=== PATIENT | female | born 1990 | race African-American/Black ===

== ENCOUNTER 2017-01-07 18:35 | Emergency (ER) | payer OTHER ==
[~2017-01-07] VITALS: Ht 157.5 cm; Wt 79.4 kg
[~2017-01-07 18:35] MED LIST: CEPH-264 PO; HYDR-971 PO; METH-37 PO
[2017-01-07 18:55] VITALS: BP 126/79
[2017-01-07] MEDS ORDERED: metroNIDAZOLE 500 MG TABLET PO ONE (19:15)
[2017-01-07] MEDS ORDERED: cefTRIAXone IM 250 MG VIAL IM ONE (19:15)
[2017-01-07] MEDS ORDERED: AZITHROMYCIN 250 MG TABLET. PO ONE (19:15)
[2017-01-07 19:17] LABS: BILIRUBIN,URINE NEGATIVE (NEG); GLUCOSE,URINE NEGATIVE (NEG); NITRITE,URINE NEGATIVE (NEG); PH,URINE 6.5; PROTEIN,URINE NEGATIVE (NEG-TRACE)
[2017-01-07 19:31] LABS: BACTERIA,URINE FEW /HPF (0-FEW); RBC,URINE 0 /HPF (0-2); SQUAMOUS EPITHELIAL CELL,UR OCC /LPF; WBC,URINE OCC /HPF (0-4)
--- NOTE | 2017-01-07 19:37 | PHYS DOC ---
Past Medical History Past Medical History: Cancer Additional Past Medical Histor: CERVICAL CA Past Surgical History: , Tubal ligation Additional Past Surgical Histo: LEAP PROCEDURE Alcohol Use: None Drug Use: None Adult General Chief Complaint Chief Complaint: SEXUALLY TRANSMITTED DISEASE [facility] HPI Patient is a 26 year old female with history of cervical cancer and treated who presents today with concern for STDs. Patient states she's had low abdominal cramping and white vaginal discharge for couple days. She believes she has an STD. She states the last time she had similar symptoms she was diagnosed with an STD. Patient denies any chance she is . Review of Systems Review of Systems Constitutional: Denies fever or chills [] Eyes: Denies change in visual acuity, redness, or eye pain [] HENT: Denies nasal congestion or sore throat [] Respiratory: Denies cough or shortness of breath [] Cardiovascular: No additional information not addressed in HPI [] GI: Denies abdominal pain, nausea, vomiting, bloody stools or diarrhea [] : Concern for STDs Musculoskeletal: Denies back pain or joint pain [] Integument: Denies rash or skin lesions [] Neurologic: Denies headache, focal weakness or sensory changes [] Endocrine: Denies polyuria or polydipsia [] Current Medications Current Medications Current Medications Medications (Trade) Dose Ordered Sig/Billie Start Time Stop Time Status Last Admin Dose Admin Azithromycin (Zithromax) 1,000 mg 1X ONCE 01/07/17 19:15 01/07/17 19:16 DC 01/07/17 19:21 1,000 MG Ceftriaxone Sodium (Rocephin Im) 250 mg 1X ONCE 01/07/17 19:15 01/07/17 19:16 DC 01/07/17 19:23 250 MG Metronidazole (Flagyl) 2,000 mg 1X ONCE 01/07/17 19:15 01/07/17 19:16 DC 01/07/17 19:20 2,000 MG Allergies Allergies Allergies Coded Allergies Type Severity Reaction Last Updated Verified No Known Drug Allergies 01/02/14 No Physical Exam Physical Exam Constitutional: Well developed, well nourished, no acute distress, non-toxic appearance. [] HENT: Normocephalic, atraumatic, bilateral external ears normal, oropharynx moist, no oral exudates, nose normal. [] Eyes: PERRLA, EOMI, conjunctiva normal, no discharge. [] Neck: Normal range of motion, no tenderness, supple, no stridor. [] Cardiovascular:Heart rate regular rhythm, no murmur [] Lungs & Thorax: Bilateral breath sounds clear to auscultation [] Abdomen: Bowel sounds normal, soft, no tenderness, no masses, no pulsatile masses. [] Pelvic exam External pelvic area appears normal. Cervix was not visualized. No CMT. Small amount of white discharge in the vaginal vault. No bleeding. No adnexal tenderness. Skin: Warm, dry, no erythema, no rash. [] Back: No tenderness, no CVA tenderness. [] Extremities: No tenderness, no cyanosis, no clubbing, ROM intact, no edema. [] Neurologic: Alert and oriented X 3, normal motor function, normal sensory function, no focal deficits noted. [] Psychologic: Affect normal, judgement normal, mood normal. [] Current Patient Data Vital Signs Vital Signs Date Time Temp Pulse Resp B/P Pulse Ox O2 Delivery O2 Flow Rate FiO2 01/07/17 18:55 98.5 93 16 100 Room Air 98.5 Lab Values Laboratory Tests Test 01/07/17 18:14 01/07/17 18:50 POC Urine HCG, Qualitative Hcg negative (Negative) Urine Color Yellow Urine Clarity Clear Urine pH 6.5 Urine Specific [place] 1.010 Urine Protein Negativemg/dL (NEG-TRACE) Urine Glucose (UA) Negativemg/dL (NEG) Urine Ketones (Stick) Negativemg/dL (NEG) Urine Blood Small (NEG) Urine Nitrite Negative (NEG) Urine Bilirubin Negative (NEG) Urine Urobilinogen Dipstick 1.0mg/dL (0.2 mg/dL) Urine Leukocyte Esterase Negative (NEG) Urine RBC 0/HPF (0-2) Urine WBC Occ/HPF (0-4) Urine Squamous Epithelial Cells Occ/LPF Urine Bacteria Few/HPF (0-FEW) Urine Mucus Slight/LPF Microbiology 01/07/17 Wet Prep - Final, Complete EKG EKG [] Radiology/Procedures Radiology/Procedures [] Course & Med Decision Making Course & Med Decision Making Pertinent Labs and Imaging studies reviewed. (See chart for details) Patient is in the ED with STD concern. She was tested. She was also treated. She was educated on STDs. She'll follow-up with her own doctor as needed. [] Arianna Disclaimer Arianna Disclaimer This electronic medical record was generated, in whole or in part, using a voice recognition dictation system. Departure Departure Impression: Primary Impression: Concern about STD in female without diagnosis Disposition: 01 HOME, SELF-CARE Condition: STABLE Referrals: NO PCP (PCP) Follow-up with your own doctor in one week Patient Instructions: Sexually Transmitted Disease Additional Instructions: You were seen for STD concern and treated. Please contact all your sex partners , let them know you were treated for STDs and ask them to seek treatment too. Use protection. JASON TSANG DRUG SAFETY SPECIALIST January 07, 2017 19:37
== END 2017-01-07 19:39 | disposition home or self-care (01) ==
LOC: ER 18:35
DX: Z11.3 Encounter for screening for infections with a predominantly sexual mode of transmission (principal); N89.8 Other specified noninflammatory disorders of vagina; R10.30 Lower abdominal pain, unspecified; Z98.890 Other specified postprocedural states; Z98.51 Tubal ligation status
CPT/HCPCS: 81001; 81025; 87491; 87591; 96372; 99284; J0696; Q0111; Q0144

== ENCOUNTER 2017-06-18 09:06 | Emergency (ER) | payer OTHER ==
[~2017-06-18] VITALS: Ht 157.5 cm; Wt 79.4 kg
[2017-06-18 09:10] VITALS: BP 126/70
[2017-06-18 09:50] LABS: BILIRUBIN,URINE NEGATIVE (NEG); GLUCOSE,URINE NEGATIVE (NEG); NITRITE,URINE NEGATIVE (NEG); PH,URINE 6.5; PROTEIN,URINE NEGATIVE (NEG-TRACE)
--- NOTE | 2017-06-18 10:00 | PHYS DOC ---
Past Medical History Past Medical History: Cancer Additional Past Medical Histor: CERVICAL CA Past Surgical History: , Tubal ligation Additional Past Surgical Histo: LEAP PROCEDURE Alcohol Use: None Drug Use: None Adult General Chief Complaint Chief Complaint: URINARY FREQUENCY HPI HPI Patient is a 26 year old female presents to the emergency department with a history of urinary frequency and urgency for the last 3 days she also states she has foul smelling urine. Patient denies fever, chills, nausea or vomiting. Patient denies vaginal discharge. Review of Systems Review of Systems Constitutional: Denies fever or chills [] Eyes: Denies change in visual acuity, redness, or eye pain [] HENT: Denies nasal congestion or sore throat [] Respiratory: Denies cough or shortness of breath [] Cardiovascular: No additional information not addressed in HPI [] GI: Denies abdominal pain, nausea, vomiting, bloody stools or diarrhea [] : dysuria denies hematuria [] Musculoskeletal: Denies back pain or joint pain [] Integument: Denies rash or skin lesions [] Neurologic: Denies headache, focal weakness or sensory changes [] Endocrine: Denies polyuria or polydipsia [] Allergies Allergies Allergies Coded Allergies Type Severity Reaction Last Updated Verified No Known Drug Allergies 01/02/14 No Physical Exam Physical Exam Constitutional: Well developed, well nourished, no acute distress, non-toxic appearance. [] HENT: Normocephalic, atraumatic, bilateral external ears normal, oropharynx moist, no oral exudates, nose normal. [] Eyes: PERRLA, EOMI, conjunctiva normal, no discharge. [] Neck: Normal range of motion, no tenderness, supple, no stridor. [] Cardiovascular:Heart rate regular rhythm, no murmur [] Lungs & Thorax: Bilateral breath sounds clear to auscultation [] Abdomen: Bowel sounds hypoactive, soft, no tenderness, no masses, no pulsatile masses. [] Skin: Warm, dry, no erythema, no rash. [] Back: No tenderness, no CVA tenderness. [] Extremities: No tenderness, no cyanosis, no clubbing, ROM intact, no edema. [] Neurologic: Alert and oriented X 3, normal motor function, normal sensory function, no focal deficits noted. [] Psychologic: Affect normal, judgement normal, mood normal. [] Current Patient Data Vital Signs Vital Signs Date Time Temp Pulse Resp B/P (MAP) Pulse Ox O2 Delivery O2 Flow Rate FiO2 06/18/17 09:10 97.8 80 16 100 Room Air 97.8 Lab Values Laboratory Tests Test 06/18/17 09:20 06/18/17 09:30 Urine Collection Type Unknown Urine Color Yellow Urine Clarity Clear Urine pH 6.5 Urine Specific [place] 1.020 Urine Protein Negative mg/dL (NEG-TRACE) Urine Glucose (UA) Negative mg/dL (NEG) Urine Ketones (Stick) Negative mg/dL (NEG) Urine Blood Moderate (NEG) Urine Nitrite Negative (NEG) Urine Bilirubin Negative (NEG) Urine Urobilinogen Dipstick 1.0 mg/dL (0.2 mg/dL) Urine Leukocyte Esterase Negative (NEG) Urine RBC Occ /HPF (0-2) Urine WBC Occ /HPF (0-4) Urine Squamous Epithelial Cells Many /LPF Urine Bacteria Few /HPF (0-FEW) Urine Mucus Mod /LPF POC Urine HCG, Qualitative Hcg negative (Negative) EKG EKG [] Radiology/Procedures Radiology/Procedures [] Course & Med Decision Making Course & Med Decision Making Pertinent Labs and Imaging studies reviewed. (See chart for details) Urine was negative for leukocyctes, positive for blood. Patient will be placed on Bactrim with recommendations for plenty of fluids such as water and cranberry juice. Recommended to avoid cranberry juice cocktail, carbonated beverages, caffeine citrus fruits and alcohol. Patient will be discharged with recommendations to followup with PCP in 7-10 days. Signs and symptoms to return to the emergency department has been provided. All questions and concerns have been answered at patients bedside. Patient agrees with discharge instructions, treatment regimen and followup recommendations. [] Dragon Disclaimer Dragon Disclaimer This electronic medical record was generated, in whole or in part, using a voice recognition dictation system. Departure Departure Impression: Primary Impression: Dysuria Disposition: 01 HOME, SELF-CARE Condition: STABLE Referrals: NO PCP (PCP) Patient Instructions: Dysuria-Brief Additional Instructions: Activity as tolerated Medication as prescribed Drink plenty of fluids such as water and cranberry juice. Avoid cranberry juice cocktail, carbonated beverages, citrus fruits, caffeine and alcohol Followup with primary care provider in 7-10 days Return to emergency department as needed for signs and symptoms that become worse. Scripts Sulfamethoxazole/Trimethoprim (BACTRIM DS TABLET) 1 Each Tablet 1 TAB PO BID, #6 TAB Prov: IDALMIS DUMONT APRN 06/18/17 IDALMIS DUMONT APRN Jun 18, 2017 09:59
[2017-06-18 10:25] LABS: BACTERIA,URINE FEW /HPF (0-FEW); RBC,URINE OCC /HPF (0-2); SQUAMOUS EPITHELIAL CELL,UR MANY /LPF; WBC,URINE OCC /HPF (0-4)
[2017-06-18] MEDS ORDERED: SULF1TAB24 PO (10:33)
== END 2017-06-18 10:59 | disposition home or self-care (01) ==
LOC: ER 09:06
DX: R30.0 Dysuria (principal); R35.0 Frequency of micturition; R39.15 Urgency of urination; Z98.51 Tubal ligation status; Z98.890 Other specified postprocedural states
CPT/HCPCS: 81001; 81025; 99283

== ENCOUNTER 2017-11-08 07:38 | Emergency (ER) | payer OTHER ==
[2017-11-08] MEDS: IBUPROFEN 800 MG TABLET. PO (08:34)
[2017-11-08] MEDS: traMADol 50 MG TABLET PO (08:34)
== END 2017-11-08 09:09 | disposition home or self-care (01) ==
LOC: ER 09:09
DX: R07.89 Other chest pain (principal)
CPT/HCPCS: 71046; 93005; 99284-25

== ENCOUNTER → 2017-11-18 | Outpatient (CLI) | payer OTHER | END | disposition home or self-care (01) | LOC: ECHO 12:16 | DX: I36.1 Nonrheumatic tricuspid (valve) insufficiency (principal); R07.89 Other chest pain | CPT/HCPCS: 93306 ==

== ENCOUNTER 2018-03-05 06:01 | Emergency (ER) | payer OTHER ==
[2018-03-05 06:45] LABS: URINE HCG POC HCG NEGATIVE (Negative)
[2018-03-05 07:05] LABS: BILIRUBIN,URINE NEGATIVE (NEG); CLARITY,URINE CLEAR; COLOR,URINE YELLOW; GLUCOSE,URINE NEGATIVE (NEG); NITRITE,URINE NEGATIVE (NEG); PH,URINE 6.5; PROTEIN,URINE NEGATIVE (NEG-TRACE)
[2018-03-05 07:10] LABS: BACTERIA,URINE MANY /HPF (0-FEW); SQUAMOUS EPITHELIAL CELL,UR MANY /LPF
== END 2018-03-05 07:26 | disposition home or self-care (01) ==
LOC: ER 06:01
DX: N39.0 Urinary tract infection, site not specified (principal); Z98.51 Tubal ligation status
CPT/HCPCS: 81001; 81025; 87086; 99284

== ENCOUNTER 2018-03-19 09:56 | Emergency (ER) | payer OTHER ==
[2018-03-19 10:10] LABS: URINE HCG POC HCG NEGATIVE (Negative)
[2018-03-19] MEDS: ONDANSETRON ODT 4 MG TAB.RAPDIS. PO (10:31)
[2018-03-19 10:50] LABS: BACTERIA,URINE 0 /HPF (0-FEW); BILIRUBIN,URINE NEGATIVE (NEG); CLARITY,URINE CLEAR; COLOR,URINE YELLOW; GLUCOSE,URINE NEGATIVE (NEG); NITRITE,URINE NEGATIVE (NEG); PROTEIN,URINE 30 mg/dL (NEG-TRACE); RBC,URINE 0 /HPF (0-2); SQUAMOUS EPITHELIAL CELL,UR MOD /LPF; WBC,URINE 0 /HPF (0-4)
== END 2018-03-19 12:20 | disposition home or self-care (01) ==
LOC: ER 09:56
DX: T67.5XXA Heat exhaustion, unspecified, initial encounter (principal); E86.0 Dehydration; R11.2 Nausea with vomiting, unspecified; X58.XXXA Exposure to other specified factors, initial encounter; Y93.89 Activity, other specified; Y99.8 Other external cause status; Y92.89 Other specified places as the place of occurrence of the external cause
CPT/HCPCS: 81001; 81025; 99283; Q0162

== ENCOUNTER 2018-04-23 08:37 | Emergency (ER) | payer OTHER ==
[~2018-04-23] VITALS: Ht 157.5 cm; Wt 81.6 kg
[~2018-04-23 08:37] MED LIST changes: +CEPH500C PO; +CYCL5TAB PO; +IBUP-1060 PO; +SULF1TAB24 PO
[2018-04-23 08:40] VITALS: BP 137/81
--- NOTE | 2018-04-23 08:50 | PHYS DOC ---
Past Medical History Past Medical History: Cancer Additional Past Medical Histor: CERVICAL CA Past Surgical History: , Tubal ligation Additional Past Surgical Histo: LEAP PROCEDURE Alcohol Use: None Drug Use: None Adult General Chief Complaint Chief Complaint: SORE THROAT HPI HPI Patient is a 27 year old female who presents to the ER for evaluation of URI symptoms. Patient reports onset of congestion, postnasal drip, bilateral ear pain, and sore throat since yesterday. No fever, normal PO intake. No nausea, no vomiting. Denies any history of recurrent strep infections. Review of Systems Review of Systems Constitutional: Denies fever or chills [] Eyes: Denies change in visual acuity, redness, or eye pain [] HENT: Denies nasal congestion or sore throat [] Respiratory: Denies cough or shortness of breath [] Cardiovascular: No additional information not addressed in HPI [] GI: Denies abdominal pain, nausea, vomiting, bloody stools or diarrhea [] : Denies dysuria or hematuria [] Musculoskeletal: Denies back pain or joint pain [] Integument: Denies rash or skin lesions [] Neurologic: Denies headache, focal weakness or sensory changes [] Endocrine: Denies polyuria or polydipsia [] All other systems were reviewed and found to be within normal limits, except as documented in this note. Allergies Allergies Allergies Coded Allergies Type Severity Reaction Last Updated Verified No Known Drug Allergies 01/02/14 No Physical Exam Physical Exam Constitutional: Well developed, well nourished, no acute distress, non-toxic appearance. [] HENT: Normocephalic, atraumatic, bilateral external ears normal, oropharynx moist with mild erythema, no oral exudates, nose normal. []No facial edema, no trismus, submental and sublingual spaces are soft and nontender, clear phonation and speech. No oral secretions Eyes: PERRLA, EOMI, Neck: no stridor. [] Cardiovascular:Heart rate regular rhythm, no murmur [] Lungs & Thorax: Bilateral breath sounds clear to auscultation [] [] Skin: Warm, dry, no erythema, no rash. [] Extremities: ROM intact Neurologic: Alert and oriented X 3,no focal deficits noted. [] Psychologic: Affect normal, judgement normal, mood normal. [] Current Patient Data Vital Signs Vital Signs Date Time Temp Pulse Resp B/P (MAP) Pulse Ox O2 Delivery O2 Flow Rate FiO2 04/23/18 08:40 98.1 78 20 137/81 (99) 99 Room Air 98.1 Lab Values Laboratory Tests Test 04/23/18 08:42 Group A Streptococcus Rapid Negative (NEGATIVE) EKG EKG [] Radiology/Procedures Radiology/Procedures [] Course & Med Decision Making Course & Med Decision Making Pertinent Labs and Imaging studies reviewed. (See chart for details) []Presentation and exam at this time consistent with viral infection. Strep negative. Discussed supportive care is patient. Patient provided with work no. ER return precautions given. Patient verbalized understanding. All questions answered. Dragon Disclaimer Dragon Disclaimer This electronic medical record was generated, in whole or in part, using a voice recognition dictation system. Departure Departure Impression: Primary Impression: Sore throat (viral) Additional Impressions: Acute pain of both ears URI (upper respiratory infection) Disposition: 01 HOME, SELF-CARE Condition: STABLE Referrals: CYNTHIA SALTER (PCP) Additional Instructions: Thank you for coming to [facility]. Please repeat the attached handouts. Please follow-up with your primary care physician. Return to the ER if your symptoms worsen or you have any other concerns. Please take ibuprofen 800 mg 3 times a day with food for pain. You can alternate this with Tylenol 1000 mg up to 4 times a day. Please take [id number] cold medication. Follow-up with your primary care doctor in the next 3-5 days. Problem Qualifiers VERA VAIL DO Apr 23, 2018 08:50
== END 2018-04-23 09:18 | disposition home or self-care (01) ==
LOC: ER 08:37
DX: J06.9 Acute upper respiratory infection, unspecified (principal); H92.03 Otalgia, bilateral; J02.8 Acute pharyngitis due to other specified organisms; B97.89 Other viral agents as the cause of diseases classified elsewhere
CPT/HCPCS: 87070; 87880; 99283

== ENCOUNTER 2018-05-26 10:07 | Emergency (ER) | payer OTHER ==
[~2018-05-26] VITALS: Ht 157.5 cm; Wt 79.4 kg
[2018-05-26 10:10] VITALS: BP 140/91
--- NOTE | 2018-05-26 10:18 | PHYS DOC ---
Past Medical History Past Medical History: Cancer Additional Past Medical Histor: CERVICAL CA Past Surgical History: , Tubal ligation Additional Past Surgical Histo: LEAP PROCEDURE Alcohol Use: None Drug Use: None Adult General Chief Complaint Chief Complaint: URINARY FREQUENCY [facility] HPI Patient is a 27 year old female with history of cervical cancer and treated, LEEP procedure, who presents today complaining of urinary frequency and dysuria that began yesterday. Patient states she has history of frequent UTIs, last episode was in February 2018. She does not remember the medications she took in February. Patient denies any abdominal pain, nausea vomiting or back pain. Denies any chance she is . Review of Systems Review of Systems Constitutional: Denies fever or chills [] Eyes: Denies change in visual acuity, redness, or eye pain [] HENT: Denies nasal congestion or sore throat [] Respiratory: Denies cough or shortness of breath [] Cardiovascular: No additional information not addressed in HPI [] GI: Denies abdominal pain, nausea, vomiting, bloody stools or diarrhea [] : Reports urinary frequency, dysuria, denies hematuria [] Musculoskeletal: Denies back pain or joint pain [] Integument: Denies rash or skin lesions [] Neurologic: Denies headache, focal weakness or sensory changes [] All other systems were reviewed and found to be within normal limits, except as documented in this note. Allergies Allergies Allergies Coded Allergies Type Severity Reaction Last Updated Verified No Known Drug Allergies 01/02/14 No Physical Exam Physical Exam Constitutional: Well developed, well nourished, no acute distress, non-toxic appearance. [] HENT: Normocephalic, atraumatic, bilateral external ears normal, oropharynx moist, no oral exudates, nose normal. [] Eyes: PERRLA, EOMI, conjunctiva normal, no discharge. [] Neck: Normal range of motion, no tenderness, supple, no stridor. [] Cardiovascular:Heart rate regular rhythm, no murmur [] Lungs & Thorax: Bilateral breath sounds clear to auscultation [] Abdomen: Bowel sounds normal, soft, no tenderness, no masses, no pulsatile masses. [] Skin: Warm, dry, no erythema, no rash. [] Back: No tenderness, no CVA tenderness. [] Extremities: No tenderness, no cyanosis, no clubbing, ROM intact, no edema. [] Neurologic: Alert and oriented X 3, normal motor function, normal sensory function, no focal deficits noted. [] Psychologic: Affect normal, judgement normal, mood normal. [] Current Patient Data Vital Signs Vital Signs Date Time Temp Pulse Resp B/P (MAP) Pulse Ox O2 Delivery O2 Flow Rate FiO2 05/26/18 10:10 98.0 91 18 140/91 (107) 100 Room Air 98.0 Lab Values Laboratory Tests Test 05/26/18 10:10 05/26/18 10:29 Urine Collection Type Unknown Urine Color Yellow Urine Clarity Clear Urine pH 7.5 Urine Specific [place] 1.015 Urine Protein Negative mg/dL (NEG-TRACE) Urine Glucose (UA) Negative mg/dL (NEG) Urine Ketones (Stick) Negative mg/dL (NEG) Urine Blood Moderate (NEG) Urine Nitrite Negative (NEG) Urine Bilirubin Negative (NEG) Urine Urobilinogen Dipstick 0.2 mg/dL (0.2 mg/dL) Urine Leukocyte Esterase Large (NEG) Urine RBC 20-40 /HPF (0-2) Urine WBC >40 /HPF (0-4) Urine Squamous Epithelial Cells Mod /LPF Urine Bacteria Few /HPF (0-FEW) POC Urine HCG, Qualitative Hcg negative (Negative) EKG EKG [] Radiology/Procedures Radiology/Procedures [] Course & Med Decision Making Course & Med Decision Making Pertinent Labs and Imaging studies reviewed. (See chart for details) This is a 27-year-old female patient presenting to the ED today with urinary frequency and dysuria for 1 day. Has history of frequent UTIs. Negative urine hCG, urine positive for UTI, discharged on Cipro. Provided a urologist to follow -up as an outpatient for frequent UTIs. Provided instructions to return to the ED at any point symptoms worsen. Discharged with Pyridium as well. Dragon Disclaimer Dragon Disclaimer This electronic medical record was generated, in whole or in part, using a voice recognition dictation system. Departure Departure Impression: Primary Impression: Urinary tract infection Disposition: HOME, SELF-CARE Condition: STABLE Referrals: NO PCP (PCP) TRI BRANCH MD Follow-up in one week Patient Instructions: Urinary Tract Infection Additional Instructions: You were evaluated in the emergency room for urinary tract infection. We put you on antibiotics, ensure you complete them. Considering you have had frequent episodes of urinary tract infection, consider calling the provided urologist and set up a follow-up appointment. Push fluids. Come back to the ED at any point symptoms worsen. Scripts Phenazopyridine Hcl (PYRIDIUM) 100 Mg Tablet 100 MG PO TID, #9 TAB Prov: JASON TSANG APRN 05/26/18 Ciprofloxacin Hcl (CIPRO) 500 Mg Tablet 1 TAB PO BID, #14 TAB Prov: JASON TSANG APRN 05/26/18 Problem Qualifiers Primary Impression: Urinary tract infection Urinary tract infection type: site unspecified Hematuria presence: without hematuria Qualified Codes: N39.0 - Urinary tract infection, site not specified JASON TSANG APRN May 26, 2018 10:18
[2018-05-26 10:40] LABS: BILIRUBIN,URINE NEGATIVE (NEG); CLARITY,URINE CLEAR; COLOR,URINE YELLOW; NITRITE,URINE NEGATIVE (NEG); PH,URINE 7.5; PROTEIN,URINE NEGATIVE (NEG-TRACE); UROBILINOGEN,URINE 0.2 mg/dL (0.2 mg/dL)
[2018-05-26 11:01] LABS: SQUAMOUS EPITHELIAL CELL,UR MOD /LPF
[2018-05-26 11:02] LABS: RBC,URINE 20-40 /HPF (0-2); WBC,URINE >40 /HPF (0-4)
[2018-05-26 11:03] LABS: BACTERIA,URINE FEW /HPF (0-FEW)
[2018-05-26] MEDS ORDERED: CIPR500T94 PO (11:18)
[2018-05-26] MEDS ORDERED: PHEN100T82 PO (11:18)
== END 2018-05-26 11:20 | disposition home or self-care (01) ==
LOC: ER 10:07
DX: N39.0 Urinary tract infection, site not specified (principal); Z98.51 Tubal ligation status
CPT/HCPCS: 81001; 81025; 87086; 87186; 87491; 87591; 99284

== ENCOUNTER 2018-09-11 06:22 | Emergency (ER) | payer OTHER ==
[~2018-09-11] VITALS: Ht 154.9 cm; Wt 79.4 kg
[~2018-09-11 06:22] MED LIST changes: +CIPR500T94 PO; +HYDR-3164 PO; -HYDR-971 PO; +PHEN100T82 PO
[2018-09-11 06:29] VITALS: BP 135/74
[2018-09-11] MEDS ORDERED: SULF1TAB24 PO (06:36)
[2018-09-11] MEDS ORDERED: CEPH500C PO (06:36)
--- NOTE | 2018-09-11 06:37 | PHYS DOC ---
Past Medical History Past Medical History: Cancer Additional Past Medical Histor: CERVICAL CA Past Surgical History: , Tubal ligation Additional Past Surgical Histo: LEAP PROCEDURE Alcohol Use: None Drug Use: None Adult General Chief Complaint Chief Complaint: SKIN PROBLEM HPI HPI Patient is a 28 year old female presented to the ER for evaluation of tender spots in left armpit since yesterday, woke up this morning with worsen pain, no fever. NO HISTORY OF DIABETIC. She shaved her armpit two days ago. Review of Systems Review of Systems Constitutional: Denies fever or chills [] Eyes: Denies change in visual acuity, redness, or eye pain [] HENT: Denies nasal congestion or sore throat [] Respiratory: Denies cough or shortness of breath [] Cardiovascular: No additional information not addressed in HPI [] GI: Denies abdominal pain, nausea, vomiting, bloody stools or diarrhea [] : Denies dysuria or hematuria [] Musculoskeletal: Denies back pain or joint pain [] Integument:TENDER AREAS IN LEFT ARMPIT . Neurologic: Denies headache, focal weakness or sensory changes [] Endocrine: Denies polyuria or polydipsia [] All other systems were reviewed and found to be within normal limits, except as documented in this note. Allergies Allergies Allergies Coded Allergies Type Severity Reaction Last Updated Verified No Known Drug Allergies 01/02/14 No Physical Exam Physical Exam Constitutional: Well developed, well nourished, no acute distress, non-toxic appearance. [] HENT: Normocephalic, atraumatic, bilateral external ears normal, oropharynx moist, no oral exudates, nose normal. [] Eyes: PERRLA, EOMI, conjunctiva normal, no discharge. [] Neck: Normal range of motion, no tenderness, supple, no stridor. [] Cardiovascular:Heart rate regular rhythm, no murmur [] Lungs & Thorax: Bilateral breath sounds clear to auscultation [] Abdomen: Bowel sounds normal, soft, no tenderness, no masses, no pulsatile masses. [] Skin: There area several small tender lesions on left armpit with surrounding erythema, the lesions are about .5 cm, too early and too small for I and D, NO ACTIVE DRAINAGE. Back: No tenderness, no CVA tenderness. [] Extremities: No tenderness, no cyanosis, no clubbing, ROM intact, no edema. [] Neurologic: Alert and oriented X 3, normal motor function, normal sensory function, no focal deficits noted. [] Psychologic: Affect normal, judgement normal, mood normal. [] Current Patient Data Vital Signs Vital Signs Date Time Temp Pulse Resp B/P (MAP) Pulse Ox O2 Delivery O2 Flow Rate FiO2 09/11/18 06:29 97.7 80 18 135/74 (94) 100 Room Air 97.7 EKG EKG [] Radiology/Procedures Radiology/Procedures [] Course & Med Decision Making Course & Med Decision Making Pertinent Labs and Imaging studies reviewed. (See chart for details) There is cellulitis and maybe early abscess in left armpit area, will try antibiotic first, if not improve in two days, patient will come back for reevaluation. Dragon Disclaimer Dragon Disclaimer This electronic medical record was generated, in whole or in part, using a voice recognition dictation system. Departure Departure Impression: Primary Impression: Cellulitis of axilla, left Disposition: 01 HOME, SELF-CARE Condition: STABLE Referrals: NO PCP (PCP) follow up with your pcp or come back to the ER in two days for reevaluation if not improving. Patient Instructions: Cellulitis Scripts Sulfamethoxazole/Trimethoprim (BACTRIM DS TABLET) 1 Each Tablet 1 TAB PO BID, #20 TAB Prov: TOMMIE SHAHID DO 09/11/18 Cephalexin (CEPHALEXIN) 500 Mg Capsule 1 CAP PO QID, #40 CAP Prov: TOMMIE SHAIHD DO 09/11/18 TOMMIE SHAHID DO Sep 11, 2018 06:37
== END 2018-09-11 06:45 | disposition home or self-care (01) ==
LOC: ER 06:22
DX: L03.112 Cellulitis of left axilla (principal)
CPT/HCPCS: 99283

== ENCOUNTER 2018-10-15 10:37 | Emergency (ER) | payer SELFPAY ==
[~2018-10-15] VITALS: Ht 154.9 cm; Wt 79.4 kg
[2018-10-15 10:39] VITALS: BP 139/81
[2018-10-15] MEDS ORDERED: ORPH100T PO (11:27)
--- NOTE | 2018-10-15 11:27 | PHYS DOC ---
Past Medical History Past Medical History: Cancer, Other Additional Past Medical Histor: CERVICAL CA Past Surgical History: , Tubal ligation, Other Additional Past Surgical Histo: LEEP PROCEDURE Alcohol Use: None Drug Use: None Adult General Chief Complaint Chief Complaint: HEAD INJURY/TRAUMA [facility] HPI Patient is a 28 year old AA female who presents to the ER with complaints of R posterior head pain and R lateral neck pain after a slip and fall on the ice last night. She denies any LOC, vision changes, or confusion after the fall. Pt states that she vomited x1 last night but has been able to drink sprite this morning without vomiting. Pt currently rates her pain a 10/10 on the pain scale there are no alleviating factors. She states that movement exacerbates the pain. Review of Systems Review of Systems Constitutional: Denies fever or chills [] Eyes: Denies change in visual acuity, redness, or eye pain [] HENT: Denies nasal congestion or sore throat [] Respiratory: Denies cough or shortness of breath [] Cardiovascular: No additional information not addressed in HPI [] GI: Denies abdominal pain, or diarrhea; see HPI Musculoskeletal: Denies back pain, reports R sided neck pain Integument: Denies rash or skin lesions [] Neurologic: Denies focal weakness or sensory changes; see HPI Allergies Allergies Allergies Coded Allergies Type Severity Reaction Last Updated Verified No Known Drug Allergies 01/02/14 No Physical Exam Physical Exam Constitutional: Well developed, well nourished, no acute distress, non-toxic appearance. [] HENT: Normocephalic, atraumatic, bilateral external ears normal, oropharynx moist, no oral exudates, nose normal. [] Eyes: PERRLA, EOMI, conjunctiva normal, no discharge. [] Neck: R sternoclavicular TTP, no bony tenderness, supple, no stridor. [] Cardiovascular:Heart rate regular rhythm, no murmur [] Lungs & Thorax: Bilateral breath sounds clear to auscultation [] Skin: Warm, dry, no erythema, no rash. [] Extremities: No cyanosis, no clubbing, ROM intact, no edema. [] Neurologic: Alert and oriented X 3, normal motor function, normal sensory function, no focal deficits noted. [] Psychologic: Affect normal, judgement normal, mood normal. [] Current Patient Data Vital Signs Vital Signs Date Time Temp Pulse Resp B/P (MAP) Pulse Ox O2 Delivery O2 Flow Rate FiO2 10/15/18 10:39 98.1 76 16 139/81 (100) 100 Room Air 98.1 EKG EKG [] Radiology/Procedures Radiology/Procedures [] Course & Med Decision Making Course & Med Decision Making Pertinent Labs and Imaging studies reviewed. (See chart for details) Dx: R cervical strain, fall with closed head injury no LOC Discussed benefits/ risks of CT scan, pt declined imaging at this time. Given head injury precautions. Prescription for norflex written, pt will take naproxen at home. Apply ice to sore areas prn. Follow up with PCP in 1-2 days if sx persist, return to ER if sx worsen. Patient verbalized an understanding of home care, medications, follow-up, and return to ED instructions and was in agreement with the plan of care. [] Dragon Disclaimer Dragon Disclaimer This electronic medical record was generated, in whole or in part, using a voice recognition dictation system. Departure Departure Impression: Primary Impression: Closed head injury without loss of consciousness Additional Impressions: Cervical strain, acute Strain of anterolateral cervical muscle Disposition: HOME, SELF-CARE Condition: STABLE Referrals: NO PCP (PCP) Patient Instructions: Cervical Strain and Sprain with [facility], Head Injury, Adult, [id number] Additional Instructions: Follow the head injury precautions provided. Apply ice to sore areas as needed for comfort. Fill the prescriptions and use as directed, take your naproxen at home twice daily. Follow up with your primary care doctor in 1-2 days if symptoms persist, return to the ER if symptoms worsen. Scripts Orphenadrine Citrate (ORPHENADRINE CITRATE) 100 Mg Tablet.er 100 MG PO BID PRN for MUSCLE PAIN for 10 Days, #20 TAB.SR 0 Refills Prov: MINO JUDD DEALMAKER 10/15/18 Problem Qualifiers Primary Impression: Closed head injury without loss of consciousness Encounter type: initial encounter Qualified Codes: S09.90XA - Unspecified injury of head, initial encounter Additional Impressions: Cervical strain, acute Encounter type: initial encounter Qualified Codes: S16.1XXA - Strain of muscle, fascia and tendon at neck level, initial encounter Strain of anterolateral cervical muscle Encounter type: initial encounter Qualified Codes: S16.1XXA - Strain of muscle, fascia and tendon at neck level, initial encounter MINO JUDD APRN Oct 15, 2018 11:27
== END 2018-10-15 11:29 | disposition home or self-care (01) ==
LOC: ER 10:37
DX: S16.1XXA Strain of muscle, fascia and tendon at neck level, initial encounter (principal); S09.8XXA Other specified injuries of head, initial encounter; M25.511 Pain in right shoulder; Z98.890 Other specified postprocedural states; Z98.51 Tubal ligation status; W00.0XXA Fall on same level due to ice and snow, initial encounter; Y93.89 Activity, other specified; Y92.89 Other specified places as the place of occurrence of the external cause; Y99.8 Other external cause status
CPT/HCPCS: 99284-25

== ENCOUNTER 2018-10-18 09:12 | Emergency (ER) | payer OTHER ==
[~2018-10-18] VITALS: Ht 154.9 cm; Wt 79.4 kg
[~2018-10-18 09:12] MED LIST changes: +ORPH100T PO
--- NOTE | 2018-10-18 10:04 | RAD ---
PA chest and 4 oblique rib x-rays HISTORY: Fall, rib pain more on the right side. FINDINGS: Heart size normal. Mediastinal silhouette is normal. No pneumothorax, pulmonary opacities or pleural effusions. No evidence of a right or left rib fracture. At the proximal right humeral shaft there is a 4 cm in length oval circumscribed intramedullary sclerotic bone lesion well-defined margins, no endosteal scalloping, cortical disruption or periosteal reaction, imaging features are nonaggressive and favor a benign lesion, could represent an involuting bone cyst or involuting nonossifying fibroma, or benign fibro-osseous lesion. This is stable from x-rays from November 2017. IMPRESSION: No acute process. No evidence of a rib fracture. See discussion above. Electronically signed by: Yordy Claudio MD (10/18/2018 9:59 AM) [facility] [place]
--- NOTE | 2018-10-18 10:06 | RAD ---
CT head without contrast PQRS statement: CT scans at this facility use dose reduction including either automated exposure control, iterative reconstructions, and /or weight based radiation dosing via mA and kV modification when appropriate to reduce radiation dose to as low as reasonably achievable. HISTORY: Fall, headache, dizziness. TECHNIQUE: 5 mm axial noncontrast imaging skull base to vertex. FINDINGS: No intracranial hemorrhage, mass, hydrocephalus, extra-axial fluid collections or infarction. No acute ischemic change. Imaged orbits, mastoids and bones are unremarkable. IMPRESSION: No acute intracranial CT abnormality. Electronically signed by: Yordy Claudio MD (10/18/2018 10:02 AM) [facility] [place]
[2018-10-18] MEDS ORDERED: HYDROcodone/APAP 5/325MG 1 TAB TABLET PO ONE (10:15)
--- NOTE | 2018-10-18 10:25 | PHYS DOC ---
Past Medical History Past Medical History: Cancer, Other Additional Past Medical Histor: CERVICAL CA Past Surgical History: , Tubal ligation, Other Additional Past Surgical Histo: LEEP PROCEDURE Alcohol Use: None Drug Use: None Adult General Chief Complaint Chief Complaint: RIB PAIN HPI HPI Patient is a 28 year old female who presents with right sided rib pain and a headache with dizziness after she fell on the ice. She's been taking over-the- counter pain control with no relief. She denies loss of consciousness, changes in gait or blurry vision. The patient is very anxious. Review of Systems Review of Systems Constitutional: Denies fever or chills [] Eyes: Denies change in visual acuity, redness, or eye pain [] HENT: Denies nasal congestion or sore throat [] Respiratory: Denies cough or shortness of breath [] Cardiovascular: No additional information not addressed in HPI [] GI: Denies abdominal pain, nausea, vomiting, bloody stools or diarrhea [] : Denies dysuria or hematuria [] Musculoskeletal: See history of present illness Integument: Denies rash or skin lesions [] Neurologic: See history of present illness Endocrine: Denies polyuria or polydipsia [] All other systems were reviewed and found to be within normal limits, except as documented in this note. Current Medications Current Medications Current Medications Medications (Trade) Dose Ordered Sig/Billie Start Time Stop Time Status Last Admin Dose Admin Acetaminophen/ Hydrocodone Bitart (Lortab 5/325) 1 tab 1X ONCE 10/18/18 10:15 10/18/18 10:16 DC 10/18/18 10:10 1 TAB Allergies Allergies Allergies Coded Allergies Type Severity Reaction Last Updated Verified No Known Drug Allergies 01/02/14 No Physical Exam Physical Exam Constitutional: Well developed, well nourished, no acute distress, non-toxic appearance. [] HENT: Normocephalic, atraumatic, bilateral external ears normal, oropharynx moist, no oral exudates, nose normal. [] Eyes: PERRLA, EOMI, conjunctiva normal, no discharge. [] Neck: Normal range of motion, no tenderness, supple, no stridor. [] Cardiovascular:Heart rate regular rhythm, no murmur [] Lungs & Thorax: Bilateral breath sounds clear to auscultation, pain with palpation to the right posterior rib cage, [] Abdomen: Bowel sounds normal, soft, no tenderness, no masses, no pulsatile masses. [] Skin: Warm, dry, no erythema, no rash. [] Back: No tenderness, no CVA tenderness. [] Extremities: No tenderness, no cyanosis, no clubbing, ROM intact, no edema. [] Neurologic: Alert and oriented X 3, normal motor function, normal sensory function, no focal deficits noted, cranial nerves II-XII are grossly intact. [] Psychologic: Affect normal, judgement normal, mood normal. [] Current Patient Data Vital Signs Vital Signs Date Time Temp Pulse Resp B/P (MAP) Pulse Ox O2 Delivery O2 Flow Rate FiO2 10/18/18 09:13 97.9 80 18 132/77 (95) 100 Room Air 97.9 Lab Values Laboratory Tests Test 10/18/18 09:37 POC Urine HCG, Qualitative Hcg negative (Negative) EKG EKG [] Radiology/Procedures Radiology/Procedures []PATIENT: BREANNA JAIN MACCOUNT: [id number]#: [id number] : 1990 LOCATION: ER AGE: 28 SEX: F EXAM STATUS: REG ER ORD. PHYSICIAN: ADORE MARADIAGA APRN REASON: fell on ice, rib pain, mainly to right PROCEDURE: RIBS BILAT & PA CXR 4+V PA chest and 4 oblique rib x-rays HISTORY: Fall, rib pain more on the right side. FINDINGS: Heart size normal. Mediastinal silhouette is normal. No pneumothorax, pulmonary opacities or pleural effusions. No evidence of a right or left rib fracture. At the proximal right humeral shaft there is a 4 cm in length oval circumscribed intramedullary sclerotic bone lesion well-defined margins, no endosteal scalloping, cortical disruption or periosteal reaction, imaging features are nonaggressive and favor a benign lesion, could represent an involuting bone cyst or involuting nonossifying fibroma, or benign fibro-osseous lesion. This is stable from x-rays from November 2017. IMPRESSION: No acute process. No evidence of a rib fracture. See discussion above. Electronically signed by: Paulo Claudio MD (10/18/2018 9:59 AM) [facility] [place] DICTATED and SIGNED BY: PAULO CLAUDIO MD DATE: 10/18/18 0956 Signed PATIENT: BREANNA JAIN ACCOUNT: [id number] : 1990 LOCATION: ER AGE: 28 SEX: F EXAM STATUS: REG ER ORD. PHYSICIAN: ADORE MARADIAGA APRN REASON: fell on ice, continued headache and dizziness PROCEDURE: CT HEAD WO CONTRAST CT head without contrast PQRS statement: CT scans at this facility use dose reduction including either automated exposure control, iterative reconstructions, and /or weight based radiation dosing via mA and kV modification when appropriate to reduce radiation dose to as low as reasonably achievable. HISTORY: Fall, headache, dizziness. TECHNIQUE: 5 mm axial noncontrast imaging skull base to vertex. FINDINGS: No intracranial hemorrhage, mass, hydrocephalus, extra-axial fluid collections or infarction. No acute ischemic change. Imaged orbits, mastoids and bones are unremarkable. IMPRESSION: No acute intracranial CT abnormality. Electronically signed by: Paulo Claudio MD (10/18/2018 10:02 AM) [facility] [place] DICTATED and SIGNED BY: PAULO CLAUDIO MD DATE: 10/18/18 0959 Course & Med Decision Making Course & Med Decision Making Pertinent Labs and Imaging studies reviewed. (See chart for details) []The patient's imaging was negative. She will be discharged home. Dragon Disclaimer Dragon Disclaimer This electronic medical record was generated, in whole or in part, using a voice recognition dictation system. Departure Departure Impression: Primary Impression: Closed head injury without loss of consciousness Additional Impression: Rib contusion Disposition: 01 HOME, SELF-CARE Condition: STABLE Referrals: NO PCP (PCP) Patient Instructions: Head Injury, Adult, Rib Contusion Additional Instructions: No acute injuries were found on imaging. Follow-up with your primary care provider for recheck in 3 days. You may take ibuprofen or Tylenol for pain. If worsening return to the emergency department. Problem Qualifiers ADORE MARADIAGA APRN Oct 18, 2018 10:25
== END 2018-10-18 10:41 | disposition home or self-care (01) ==
LOC: ER 09:12
DX: S20.211A Contusion of right front wall of thorax, initial encounter (principal); S09.90XA Unspecified injury of head, initial encounter; R51 Headache; R42 Dizziness and giddiness; W00.0XXA Fall on same level due to ice and snow, initial encounter; Y93.89 Activity, other specified; Y92.89 Other specified places as the place of occurrence of the external cause; Y99.8 Other external cause status
CPT/HCPCS: 70450; 71111; 81025; 99284-25

== ENCOUNTER 2018-11-11 16:47 | Emergency (ER) | payer SELFPAY ==
[~2018-11-11] VITALS: Ht 154.9 cm; Wt 79.4 kg
--- NOTE | 2018-11-11 18:08 | PHYS DOC ---
Past Medical History Past Medical History: Cancer, Other Additional Past Medical Histor: CERVICAL CA (MINO JUDD APRN) Past Surgical History: , Tubal ligation, Other Additional Past Surgical Histo: LEEP PROCEDURE (MINO JUDD APRN) Alcohol Use: None Drug Use: None (MINO JUDD APRN) Adult General Chief Complaint Chief Complaint: CONSTIPATION HPI HPI Patient is a 28 year old AA female who presents to the ER with complaints of constipation and abdominal pain. Patient states she has not had a bowel movement for the last 6 days. Earlier today when she tried to go to have a bowel movement the only thing that came out was some bright red blood. Patient denies any fever, dysuria, increased urinary frequency, hematuria, nausea, vomiting, or diarrhea. She states that symptoms first began after she had eaten at a [place] steak[place], which made her feel like she had food poisoning. Currently she rates her pain as a 7 out of 10 on the pain scale. She states there are no alleviating factors. The pain increases when she tries to have a bowel movement or if her abdomen is palpated. (MINO JUDD APRN) Review of Systems Review of Systems Constitutional: Denies fever or chills [] Eyes: Denies change in visual acuity, redness, or eye pain [] HENT: Denies nasal congestion or sore throat [] Respiratory: Denies cough or shortness of breath [] Cardiovascular: No additional information not addressed in HPI [] GI: See history of present illness : Denies dysuria, increased frequency, or hematuria [] Musculoskeletal: Denies back pain or joint pain [] Integument: Denies rash or skin lesions [] Neurologic: Denies headache, focal weakness or sensory changes [] Complete systems were reviewed and found to be within normal limits, except as documented in this note. (MINO JUDD APRN) Current Medications Current Medications Current Medications Medications (Trade) Dose Ordered Sig/Billie Start Time Stop Time Status Last Admin Dose Admin Iohexol (Omnipaque 300 Mg/ml) 75 ml 1X ONCE 11/11/18 19:15 11/11/18 19:16 DC 11/11/18 19:20 75 ML Magnesium Citrate (Citroma) 296 ml 1X ONCE 3/6/19 20:00 11/11/18 20:01 DC 11/11/18 20:00 296 ML Sodium Chloride 1,000 ml @ 1,000 mls/hr 1X ONCE 11/11/18 18:15 11/11/18 19:14 DC 11/11/18 18:21 1,000 MLS/HR (DEANA VILLALOBOS DO) Allergies Allergies Allergies Coded Allergies Type Severity Reaction Last Updated Verified No Known Drug Allergies 01/02/14 No (DEANA VILLALOBOS DO) Physical Exam Physical Exam Constitutional: Well developed, well nourished, no acute distress, non-toxic appearance, obese. [] HENT: Normocephalic, atraumatic, bilateral external ears normal, oropharynx moist, no oral exudates, nose normal. [] Eyes: conjunctiva normal, no discharge. [] Neck: Normal range of motion, no stridor. [] Cardiovascular:Heart rate regular rhythm, no murmur [] Lungs & Thorax: Bilateral breath sounds clear to auscultation [] Abdomen: Bowel sounds normal, soft, no masses, no pulsatile masses; diffuse tenderness to palpation in right upper quadrant, right lower quadrant, and left lower quadrant of the abdomen Rectal Exam: Normal tone, No mass, Positive control Stool: Brown Guaiac: Negative [] Skin: Warm, dry, no erythema, no rash. [] Back: No CVA tenderness. [] Extremities: No cyanosis, no clubbing, ROM intact, no edema. [] Neurologic: Alert and oriented X 3, normal motor function, normal sensory function, no focal deficits noted. [] Psychologic: Affect normal, judgement normal, mood normal. [] (MINO JUDD APRN) Current Patient Data Vital Signs Vital Signs Date Time Temp Pulse Resp B/P (MAP) Pulse Ox O2 Delivery O2 Flow Rate FiO2 11/11/18 20:32 79 125/81 (96) 100 Room Air 11/11/18 18:00 97.9 16 97.9 (DEANA VILLALOBOS DO) Lab Values Laboratory Tests Test 11/11/18 17:22 11/11/18 18:04 11/11/18 18:20 POC Urine HCG, Qualitative Hcg negative (Negative) Urine Collection Type Unknown Urine Color Yellow Urine Clarity Clear Urine pH 6.0 Urine Specific [place] 1.020 Urine Protein Negative mg/dL (NEG-TRACE) Urine Glucose (UA) Negative mg/dL (NEG) Urine Ketones (Stick) Negative mg/dL (NEG) Urine Blood Moderate (NEG) Urine Nitrite Negative (NEG) Urine Bilirubin Negative (NEG) Urine Urobilinogen Dipstick 1.0 mg/dL (0.2 mg/dL) Urine Leukocyte Esterase Negative (NEG) Urine RBC 0 /HPF (0-2) Urine WBC 0 /HPF (0-4) Urine Squamous Epithelial Cells Mod /LPF Urine Bacteria Few /HPF (0-FEW) Urine Mucus Mod /LPF Stool Occult Blood Negative (NEG) White Blood Count 6.6 x10^3/uL (4.0-11.0) Red Blood Count 4.63 x10^6/uL (3.50-5.40) Hemoglobin 12.0 g/dL (12.0-15.5) Hematocrit 37.6 % (36.0-47.0) Mean Corpuscular Volume 81 fL (79-100) Mean Corpuscular Hemoglobin 26 pg (25-35) Mean Corpuscular Hemoglobin Concent 32 g/dL (31-37) Red Cell Distribution Width 14.1 % (11.5-14.5) Platelet Count 273 x10^3/uL (140-400) Neutrophils (%) (Auto) 61 % (31-73) Lymphocytes (%) (Auto) 31 % (24-48) Monocytes (%) (Auto) 7 % (0-9) Eosinophils (%) (Auto) 0 % (0-3) Basophils (%) (Auto) 0 % (0-3) Neutrophils # (Auto) 4.0 x10^3uL (1.8-7.7) Lymphocytes # (Auto) 2.1 x10^3/uL (1.0-4.8) Monocytes # (Auto) 0.4 x10^3/uL (0.0-1.1) Eosinophils # (Auto) 0.0 x10^3/uL (0.0-0.7) Basophils # (Auto) 0.0 x10^3/uL (0.0-0.2) Sodium Level 142 mmol/L (136-145) Potassium Level 3.6 mmol/L (3.5-5.1) Chloride Level 105 mmol/L (98-107) Carbon Dioxide Level 28 mmol/L (21-32) Anion Gap 9 (6-14) Blood Urea Nitrogen 13 mg/dL (7-20) Creatinine 0.8 mg/dL (0.6-1.0) Estimated GFR (Cockcroft-Gault) 101.9 BUN/Creatinine Ratio 16 (6-20) Glucose Level 76 mg/dL (70-99) Calcium Level 8.7 mg/dL (8.5-10.1) Total Bilirubin 0.3 mg/dL (0.2-1.0) Aspartate Amino Transferase (AST) 17 U/L (15-37) Alanine Aminotransferase (ALT) 16 U/L (14-59) Alkaline Phosphatase 84 U/L (46-116) Total Protein 7.3 g/dL (6.4-8.2) Albumin 3.4 g/dL (3.4-5.0) Albumin/Globulin Ratio 0.9 (1.0-1.7) L Lipase 123 U/L (73-393) Laboratory Tests 11/11/18 18:20 Laboratory Tests 11/11/18 18:20 (DEANA VILLALOBOS DO) EKG EKG [] (MINO JUDD APRN) Radiology/Procedures Radiology/Procedures PROCEDURE: CT ABD PELV W/ IV CONTRST ONLY CT ABD PELV W/ IV CONTRST ONLY Indication: Diffuse abdominal pain Technique: Postcontrast CT imaging was performed of the abdomen and pelvis, multiplanar reconstruction images submitted. No oral contrast was given. One or more of the following individualized dose reduction techniques were utilized for this examination: 1. Automated exposure control 2. Adjustment of the mA and/or kV according to patient size 3. Use of iterative reconstruction technique. Comparison: None Findings: There is no abnormality of the limited visualized lung bases. No focal abnormality is identified of the of the liver, spleen, pancreas. Gallbladder is present without obvious intraluminal abnormality by CT. Both kidneys enhance, no significant hydronephrosis. No significant adrenal nodularity is identified. Evaluation of bowel is limited without oral contrast, no bowel dilatation, free air, free fluid. Normal appendix is visualized. There is some variable retained stool in the colon. IMPRESSION: 1. No significant acute abnormality is identified. There is variable retained stool in the colon.[] (MINO JUDD APRN) Course & Med Decision Making Course & Med Decision Making Pertinent Labs and Imaging studies reviewed. (See chart for details) dx: Constipation, abdominal pain ddx: Colitis, diverticulitis, rectal bleeding, appendicitis, UTI, CT revealed varying stool in the colon, no acute abnormality or process. Labs are not concerning for urinary tract infection, dehydration, or acute infection. She was given 1 L of normal saline IV in the emergency department. One bottle of magnesium citrate was also ordered. Patient was encouraged to take one capful of MiraLAX twice daily until bowel movements have normalize, then take one capful of MiraLAX once a day until normal stools have resumed. Follow-up with primary care doctor, return to the emergency room if symptoms worsen. Patient verbalized an understanding of home care, medications, follow-up, and return to ED instructions and was in agreement with the plan of care. [] (MINO JUDD APRN) Dragon Disclaimer Dragon Disclaimer This electronic medical record was generated, in whole or in part, using a voice recognition dictation system. (MINO JUDD APRN) Departure Departure Impression: Primary Impression: Constipation Additional Impression: Abdominal pain Disposition: HOME, SELF-CARE Condition: STABLE Referrals: NO PCP (PCP) Patient Instructions: Constipation, Adult, [id number] Additional Instructions: Take one capful of MiraLAX twice daily until bowel movements is produced, then take one capful of MiraLAX once a day until normal stools have resumed. Follow- up with primary care doctor if symptoms persist, return to the emergency room if symptoms worsen. Attending Signature Attending Signature I have reviewed the PA/TREATMENT COORDINATOR's note and plan of care. I was available for consultation as needed during the patient's visit in the emergency department. I agree with the clinical impression, plan, and disposition. (DEANA VILLALOBOS DO) Problem Qualifiers Primary Impression: Constipation Constipation type: unspecified constipation type Qualified Codes: K59.00 - Constipation, unspecified Additional Impression: Abdominal pain Abdominal location: unspecified location Qualified Codes: R10.9 - Unspecified abdominal pain MINO JUDD APRN Nov 11, 2018 18:08 DEANA VILLALOBOS DO Nov 12, 2018 04:19
[2018-11-11] MEDS ORDERED: IV NORMAL SALINE 1000ML BAG 1,000 ML IV ONE (18:15)
[2018-11-11 18:23] LABS: BILIRUBIN,URINE NEGATIVE (NEG); CLARITY,URINE CLEAR; COLOR,URINE YELLOW; NITRITE,URINE NEGATIVE (NEG); PROTEIN,URINE NEGATIVE (NEG-TRACE)
[2018-11-11 18:38] LABS: FECAL OB PT NEGATIVE (NEG)
[2018-11-11 18:39] LABS: BASO % 0 % (0-3); EOS % 0 % (0-3); HEMATOCRIT 37.6 % (36.0-47.0); LYMPH # 2.1 x10^3/uL (1.0-4.8); LYMPH % 31 % (24-48); MEAN CORPUSCULAR HEMOGLOBIN 26 pg (25-35); MEAN CORPUSCULAR HGB CONC 32 g/dL (31-37); MEAN CORPUSCULAR VOLUME 81 fL (79-100); MONO # 0.4 x10^3/uL (0.0-1.1); MONO % 7 % (0-9); NEUT % 61 % (31-73); PLATELET COUNT 273 x10^3/uL (140-400); RED BLOOD COUNT 4.63 x10^6/uL (3.50-5.40); RED CELL DISTRIBUTION WIDTH 14.1 % (11.5-14.5); WHITE BLOOD COUNT 6.6 x10^3/uL (4.0-11.0)
[2018-11-11 18:48] LABS: BACTERIA,URINE FEW /HPF (0-FEW); RBC,URINE 0 /HPF (0-2); SQUAMOUS EPITHELIAL CELL,UR MOD /LPF; WBC,URINE 0 /HPF (0-4)
[2018-11-11 18:49] LABS: CALCIUM 8.7 mg/dL (8.5-10.1); CREATININE 0.8 mg/dL (0.6-1.0); GFR 101.9; POTASSIUM 3.6 mmol/L (3.5-5.1)
[2018-11-11 18:55] LABS: ALBUMIN 3.4 g/dL (3.4-5.0); ALBUMIN/GLOBULIN RATIO 0.9 (1.0-1.7); TOTAL BILIRUBIN 0.3 mg/dL (0.2-1.0); TOTAL PROTEIN 7.3 g/dL (6.4-8.2)
[2018-11-11] MEDS ORDERED: IOHEXOL 300 MG/ML 100ML VIAL. IV ONE (19:15)
--- NOTE | 2018-11-11 19:49 | RAD ---
CT ABD PELV W/ IV CONTRST ONLY Indication: Diffuse abdominal pain Technique: Postcontrast CT imaging was performed of the abdomen and pelvis, multiplanar reconstruction images submitted. No oral contrast was given. One or more of the following individualized dose reduction techniques were utilized for this examination: 1. Automated exposure control 2. Adjustment of the mA and/or kV according to patient size 3. Use of iterative reconstruction technique. Comparison: None Findings: There is no abnormality of the limited visualized lung bases. No focal abnormality is identified of the of the liver, spleen, pancreas. Gallbladder is present without obvious intraluminal abnormality by CT. Both kidneys enhance, no significant hydronephrosis. No significant adrenal nodularity is identified. Evaluation of bowel is limited without oral contrast, no bowel dilatation, free air, free fluid. Normal appendix is visualized. There is some variable retained stool in the colon. IMPRESSION: 1. No significant acute abnormality is identified. There is variable retained stool in the colon. Electronically signed by: Rob Molina MD (11/11/2018 7:46 PM) [facility]
[2018-11-11] MEDS ORDERED: MAGNESIUM CITRATE 296 ML SOLUTION. PO ONE (20:00)
[2018-11-11 20:32] VITALS: BP 125/81
== END 2018-11-11 20:33 | disposition home or self-care (01) ==
LOC: ER 16:47
DX: K59.00 Constipation, unspecified (principal); R10.9 Unspecified abdominal pain; E66.9 Obesity, unspecified; Z68.33 Body mass index [BMI] 33.0-33.9, adult; Z98.890 Other specified postprocedural states; Z98.51 Tubal ligation status
CPT/HCPCS: 36415; 74177; 80053; 81001; 81025; 82274; 83690; 85025; 99284; J7030; Q9967

== ENCOUNTER 2018-11-26 11:27 | Emergency (ER) | payer SELFPAY ==
[~2018-11-26] VITALS: Ht 154.9 cm; Wt 79.4 kg
[2018-11-26 11:35] VITALS: BP 120/70
[2018-11-26 11:51] LABS: BILIRUBIN,URINE NEGATIVE (NEG); COLOR,URINE YELLOW; NITRITE,URINE NEGATIVE (NEG); PROTEIN,URINE NEGATIVE (NEG-TRACE); UROBILINOGEN,URINE 0.2 mg/dL (0.2 mg/dL)
[2018-11-26 12:06] LABS: BACTERIA,URINE MODERATE /HPF (0-FEW); CLARITY,URINE CLOUDY; RBC,URINE 20-40 /HPF (0-2); SQUAMOUS EPITHELIAL CELL,UR OCC /LPF; WBC,URINE >40 /HPF (0-4)
[2018-11-26] MEDS ORDERED: SULF1TAB24 PO (12:24)
--- NOTE | 2018-11-26 12:26 | PHYS DOC ---
Past Medical History Past Medical History: Cancer, Other Additional Past Medical Histor: CERVICAL CA Past Surgical History: , Tubal ligation, Other Additional Past Surgical Histo: LEEP PROCEDURE Alcohol Use: None Drug Use: None Adult General Chief Complaint Chief Complaint: [facility] HPI Patient is a 28 year old female who presents with urinary frequency and a foul odor x 4 days. She has not used OTC remedies. She denies nausea, vomiting or fever. She denies back pain. Review of Systems Review of Systems Constitutional: Denies fever or chills [] Eyes: Denies change in visual acuity, redness, or eye pain [] HENT: Denies nasal congestion or sore throat [] Respiratory: Denies cough or shortness of breath [] Cardiovascular: No additional information not addressed in HPI [] GI: Denies abdominal pain, nausea, vomiting, bloody stools or diarrhea [] : See HPI Musculoskeletal: Denies back pain or joint pain [] Integument: Denies rash or skin lesions [] Neurologic: Denies headache, focal weakness or sensory changes [] Endocrine: Denies polyuria or polydipsia [] All other systems were reviewed and found to be within normal limits, except as documented in this note. Allergies Allergies Allergies Coded Allergies Type Severity Reaction Last Updated Verified No Known Drug Allergies 01/02/14 No Physical Exam Physical Exam Constitutional: Well developed, well nourished, no acute distress, non-toxic appearance. [] HENT: Normocephalic, atraumatic, bilateral external ears normal, oropharynx moist, no oral exudates, nose normal. [] Eyes: PERRLA, EOMI, conjunctiva normal, no discharge. [] Neck: Normal range of motion, no tenderness, supple, no stridor. [] Cardiovascular:Heart rate regular rhythm, no murmur [] Lungs & Thorax: Bilateral breath sounds clear to auscultation [] Abdomen: Bowel sounds normal, soft, no tenderness, no masses, no pulsatile masses. [] Skin: Warm, dry, no erythema, no rash. [] Back: No tenderness, no CVA tenderness. [] Extremities: No tenderness, no cyanosis, no clubbing, ROM intact, no edema. [] Neurologic: Alert and oriented X 3, normal motor function, normal sensory function, no focal deficits noted. [] Psychologic: Affect normal, judgement normal, mood normal. [] Current Patient Data Vital Signs Vital Signs Date Time Temp Pulse Resp B/P (MAP) Pulse Ox O2 Delivery O2 Flow Rate FiO2 11/26/18 11:35 98.5 85 16 120/70 (87) 98 Room Air 98.5 Lab Values Laboratory Tests Test 11/26/18 11:30 11/26/18 11:43 Urine Collection Type Unknown Urine Color Yellow Urine Clarity Cloudy Urine pH 5.0 Urine Specific [place] 1.020 Urine Protein Negative mg/dL (NEG-TRACE) Urine Glucose (UA) Negative mg/dL (NEG) Urine Ketones (Stick) 15 mg/dL (NEG) Urine Blood Large (NEG) Urine Nitrite Negative (NEG) Urine Bilirubin Negative (NEG) Urine Urobilinogen Dipstick 0.2 mg/dL (0.2 mg/dL) Urine Leukocyte Esterase Moderate (NEG) Urine RBC 20-40 /HPF (0-2) Urine WBC >40 /HPF (0-4) Urine Squamous Epithelial Cells Occ /LPF Urine Bacteria Moderate /HPF (0-FEW) POC Urine HCG, Qualitative Hcg negative (Negative) Microbiology 11/26/18 Urine Culture - Final, Complete 11/26/18 Urine Culture Result 1 (ELEAZAR) - Final, Complete 11/26/18 Antimicrobic Susceptibility - Final, Complete EKG EKG [] Radiology/Procedures Radiology/Procedures [] Course & Med Decision Making Course & Med Decision Making Pertinent Labs and Imaging studies reviewed. (See chart for details) [] Dragon Disclaimer Dragon Disclaimer This electronic medical record was generated, in whole or in part, using a voice recognition dictation system. Departure Departure Impression: Primary Impression: Urinary tract infection Disposition: 01 HOME, SELF-CARE Condition: STABLE Referrals: NO PCP (PCP) Patient Instructions: Urinary Tract Infection Additional Instructions: Take the medication as directed. Increase fluids and rest. Follow-up with your primary care provider for a urine recheck in one week. Scripts Sulfamethoxazole/Trimethoprim (BACTRIM DS TABLET) 1 Each Tablet 1 TAB PO BID for UTI, #14 TAB Prov: ADORE MARADIAGA APRN 11/26/18 ADORE MARADIAGA APRN Nov 26, 2018 12:26
== END 2018-11-26 12:31 | disposition home or self-care (01) ==
LOC: ER 11:27
DX: N39.0 Urinary tract infection, site not specified (principal); Z98.890 Other specified postprocedural states; Z98.51 Tubal ligation status
CPT/HCPCS: 81001; 81025; 87086; 87186; 99283

== ENCOUNTER 2019-10-19 09:23 | Emergency (ER) | payer MEDICAID ==
[~2019-10-19] VITALS: Ht 154.9 cm; Wt 96.0 kg
[2019-10-19 09:56] VITALS: BP 136/88
[2019-10-19] MEDS ORDERED: IBUP-1060 PO (10:40)
[2019-10-19] MEDS ORDERED: CEPH-264 PO (10:40)
[2019-10-19] MEDS ORDERED: SULF1TAB24 PO (10:40)
--- NOTE | 2019-10-19 10:40 | PHYS DOC ---
Past Medical History Past Medical History: Cancer, Other Additional Past Medical Histor: CERVICAL CA Past Surgical History: , Tubal ligation, Other Additional Past Surgical Histo: LEEP PROCEDURE Smoking Status: Never Smoker Alcohol Use: None Drug Use: None Adult General Chief Complaint Chief Complaint: ABSCESS HPI HPI Patient is a 29 year old AA female who presents to the emergency department with complaints of a sore, tender, lump in her right axilla for the last 2 days. Patient denies any fever, body aches, fatigue, shortness of breath, cough, nausea, vomiting, or diarrhea. She denies any redness, warmth, or drainage from the site. She states she took some ibuprofen this morning to help to reduce the pain she is also been applying warm moist packs to the area. She currently rates pain a 6 out of 7 on a pain scale, pain increases if the area is touched. Review of Systems Review of Systems All other ROS is negative unless otherwise noted in HPI. Allergies Allergies Allergies Coded Allergies Type Severity Reaction Last Updated Verified No Known Drug Allergies 01/02/14 No Physical Exam Physical Exam See Above Constitutional: Well developed, well nourished, no acute distress, non-toxic appearance. [] HENT: Normocephalic, atraumatic, bilateral external ears normal, oropharynx moist, no oral exudates, nose normal. [] Eyes: PERRLA, EOMI, conjunctiva normal, no discharge. [] Neck: Normal range of motion, no stridor. [] Cardiovascular:Heart rate regular rhythm Lungs & Thorax: Bilateral breath sounds clear to auscultation [] Skin: Warm, dry, no erythema, no rash; swollen tender lump noted in R axilla consistent with abscess, non-fluctuant. [] Extremities: No cyanosis, ROM intact Neurologic: Alert and oriented X 3, no focal deficits noted. [] Psychologic: Affect normal, judgement normal, mood normal. [] Current Patient Data Vital Signs Vital Signs Date Time Temp Pulse Resp B/P (MAP) Pulse Ox O2 Delivery O2 Flow Rate FiO2 10/19/19 09:56 98.1 76 18 136/88 (104) 100 Room Air 98.1 EKG EKG [] Radiology/Procedures Radiology/Procedures [] Course & Med Decision Making Course & Med Decision Making Pertinent Labs and Imaging studies reviewed. (See chart for details) [] Dragon Disclaimer Arianna Disclaimer This electronic medical record was generated, in whole or in part, using a voice recognition dictation system. Departure Departure Impression: Primary Impression: Abscess of right axilla Disposition: 01 HOME, SELF-CARE Condition: STABLE Referrals: NO PCP (PCP) Patient Instructions: Abscess, [id number], Hidradenitis Suppurativa, Sweat Gland Abscess Additional Instructions: Fill the prescription(s) and use as directed. Apply warm, moist packs to the area frequently to help decrease discomfort. Follow up with your primary care doctor or return to the ER in 1-2 days to have site rechecked. Return to the ER sooner if your symptoms worsen. Scripts Ibuprofen (IBUPROFEN) 800 Mg Tablet 800 MG PO PRN Q6HRS PRN for PAIN for 10 Days, #30 TAB 0 Refills Prov: MINO JUDD [employer] MANAGER 10/19/19 Sulfamethoxazole/Trimethoprim (BACTRIM DS TABLET) 1 Each Tablet 1 TAB PO BID for 10 Days, #20 TAB 0 Refills Prov: MINO [employer] MANAGER 10/19/19 Cephalexin (KEFLEX) 500 Mg Capsule 500 MG PO QID for 10 Days, #40 CAP 0 Refills Prov: MINO JUDD [employer] MANAGER 10/19/19 MINO [employer] MANAGER Oct 19, 2019 10:40
== END 2019-10-19 10:51 | disposition home or self-care (01) ==
LOC: ER 09:23
DX: L02.411 Cutaneous abscess of right axilla (principal)
CPT/HCPCS: 99283

== ENCOUNTER 2020-07-24 06:25 | Emergency (ER) | payer MEDICAID ==
[~2020-07-24] VITALS: Ht 157.5 cm; Wt 81.8 kg
--- NOTE | 2020-07-24 06:36 | PHYS DOC ---
Past Medical History Past Medical History: Cancer, Other Additional Past Medical Histor: CERVICAL CA Past Surgical History: , Tubal ligation, Other Additional Past Surgical Histo: LEEP PROCEDURE Past Surgical History polyp removal Smoking Status: Never Smoker Alcohol Use: None Drug Use: None General Adult EDM: Chief Complaint: VAGINAL PROBLEM HPI: HPI: Patient is a 29 year old female who presents with vaginal irritation/discomfort. LMP started July 18 and lasted 5 days, she uses tampons. On day 3-4 she describes vaginal discomfort. Following period she noticed a smell and off-white vaginal discomfort. Recently found out her boyfriend was unfaithful and is concerned about STI's. She tried refresh, a vaginal gel, that helps rebalance pH with no success. Over the weekend it would burn when she peed. 0/10 pain reported. Review of Systems: Review of Systems: Constitutional: Denies fever or chills Eyes: Denies redness or eye pain HENT: Denies nasal congestion or sore throat Respiratory: Denies cough or shortness of breath Cardiovascular: Denies chest pain or palpitations GI: Denies abdominal pain, nausea, or vomiting /[employer] PORT[employer] ARCHITECT: Denies dysuria or hematuria; reports vaginal discharge and discomfort Musculoskeletal: Denies back pain or joint pain Integument: Denies rash or skin lesions Neurologic: Denies headache, focal weakness or sensory changes Complete systems were reviewed and found to be within normal limits, except as documented in this note. Current Medications: None Allergies: Allergies: Allergies Coded Allergies Type Severity Reaction Last Updated Verified No Known Drug Allergies 01/02/14 No Physical Exam: PE: Constitutional: Well developed, well nourished, no acute distress, non-toxic appearance HENT: Normocephalic, atraumatic Eyes: conjunctiva normal, no discharge Neck: Normal range of motion, no tenderness, supple Lungs & Thorax: No respiratory distress, equal chest rise and fall Abdomen: Soft, no tenderness Skin: Warm, dry, no erythema, no rash Back: No tenderness, no CVA tenderness Pelvic: Field Irrigation Worker RN, external genetalia normal, NO CMT, no adnexal tenderness Extremities: No tenderness, ROM intact, no edema Neurologic: Alert and oriented X 3, normal motor function, normal sensory function, no focal deficits noted Psychologic: Affect normal, judgment normal Course & Med Decision Making: Course & Med Decision Making Pertinent Labs reviewed. (See chart for details) Pelvic exam completed. Chlamydia/gonorrhea cultures pending. Empiric antibiotic coverages provided. Wet mount positive for bacterial vaginosis and trichomoniasis, antibiotic prescribed. UA positive for nitrate and WBCs, antibiotic prescribed. Patient stable for discharge with outpatient follow-up with PCP/ OBGYN. [employer] ARCHITECT referral provided. Discussed findings and plan with patient, who acknowledges understanding and agreement. Arianna Disclaimer: Arianna Disclaimer: This electronic medical record was generated, in whole or in part, using a voice recognition dictation system. Departure Departure Impression: Primary Impression: Trichomoniasis of vagina Additional Impressions: Bacterial vaginosis UTI (urinary tract infection) Qualified Codes: N30.00 - Acute cystitis without hematuria Disposition: HOME SELF CARE/HOMELESS Condition: STABLE Referrals: NO PCP (PCP) DALTON KENT Jr, MD Patient Instructions: Bacterial Vaginosis, [id number], Sexually Transmitted Disease, [id number], Trichomoniasis, Urinary Tract Infection, Oxii-aq-[id number] Scripts Metronidazole (FLAGYL) 500 Mg Tablet 500 MG PO BID, #14 TAB Prov: DEANA VILLALOBOS DO 07/24/20 Cephalexin (KEFLEX) 500 Mg Capsule 500 MG PO TID for 7 Days, #21 CAP Prov: DEANA VILLALOBOS DO 07/24/20 DEANA VILLALOBOS DO Jul 24, 2020 06:36
[2020-07-24 06:42] VITALS: BP 127/67
[2020-07-24 07:11] LABS: BILIRUBIN,URINE NEGATIVE (NEG); CLARITY,URINE CLOUDY; COLOR,URINE YELLOW; NITRITE,URINE POSITIVE (NEG); PROTEIN,URINE NEGATIVE (NEG-TRACE)
[2020-07-24] MEDS ORDERED: AZITHROMYCIN 250 MG TABLET. PO ONE (07:15)
[2020-07-24] MEDS ORDERED: cefTRIAXone IM 250 MG VIAL IM ONE (07:15)
[2020-07-24 07:26] LABS: BACTERIA,URINE FEW /HPF (0-FEW); WBC,URINE 20-40 /HPF (0-4)
[2020-07-24] MEDS ORDERED: METR500T PO (08:17)
[2020-07-24] MEDS ORDERED: CEPH-264 PO (08:17)
[2020-07-25 19:09] LABS: GC PROBE Negative (Negative)
== END 2020-07-24 08:20 | disposition home or self-care (01) ==
LOC: ER 06:25
DX: N30.00 Acute cystitis without hematuria (principal); N76.0 Acute vaginitis; B96.89 Other specified bacterial agents as the cause of diseases classified elsewhere; A59.01 Trichomonal vulvovaginitis; Z85.9 Personal history of malignant neoplasm, unspecified; Z98.51 Tubal ligation status; Z98.890 Other specified postprocedural states
CPT/HCPCS: 81001; 81025; 87086; 87491; 87591; 96372; 99284; J0696; Q0111